=== PATIENT | female | born 1970 | race Caucasian/White ===

== ENCOUNTER → 2016-07-15 | Outpatient (CLI) | payer BC | LOC: OPSV 08:26 | DX: M06.4 Inflammatory polyarthropathy (principal); D86.9 Sarcoidosis, unspecified; M70.61 Trochanteric bursitis, right hip; E55.9 Vitamin D deficiency, unspecified | CPT/HCPCS: 96413; 96415; J1745; Q0163 ==

== ENCOUNTER → 2016-08-14 | Outpatient (CLI) | payer BC ==
[~2016-08-14] VITALS: Ht 157.5 cm; Wt 99.8 kg
== END ==
LOC: OPSV 14:22
DX: D86.9 Sarcoidosis, unspecified (principal); M70.61 Trochanteric bursitis, right hip; E55.9 Vitamin D deficiency, unspecified; R94.5 Abnormal results of liver function studies; M06.4 Inflammatory polyarthropathy
CPT/HCPCS: 96413; 96415; J1745; Q0163

== ENCOUNTER → 2016-09-10 | Outpatient (CLI) | payer BC ==
[~2016-09-10] VITALS: Ht 157.5 cm; Wt 99.8 kg
== END ==
LOC: OPSV 08:00
DX: R94.5 Abnormal results of liver function studies (principal); I10 Essential (primary) hypertension; M70.61 Trochanteric bursitis, right hip; D86.9 Sarcoidosis, unspecified; M06.4 Inflammatory polyarthropathy; E55.9 Vitamin D deficiency, unspecified; Z79.899 Other long term (current) drug therapy
CPT/HCPCS: 96413; 96415; J1745; Q0163

== ENCOUNTER → 2016-10-09 | Outpatient (CLI) | payer BC ==
[~2016-10-09] VITALS: Ht 157.5 cm; Wt 99.8 kg
== END ==
LOC: OPSV 10-08 08:00
DX: M70.61 Trochanteric bursitis, right hip (principal); I10 Essential (primary) hypertension; M06.4 Inflammatory polyarthropathy; R21 Rash and other nonspecific skin eruption; M83.9 Adult osteomalacia, unspecified; Z79.899 Other long term (current) drug therapy; E55.9 Vitamin D deficiency, unspecified; D86.9 Sarcoidosis, unspecified
CPT/HCPCS: 96413; 96415; J1745; Q0163

== ENCOUNTER → 2016-11-06 | Outpatient (CLI) | payer BC ==
[~2016-11-06] VITALS: Ht 157.5 cm; Wt 99.8 kg
== END ==
LOC: OPSV 08:23
DX: D86.9 Sarcoidosis, unspecified (principal); M70.61 Trochanteric bursitis, right hip; E55.9 Vitamin D deficiency, unspecified; Z79.899 Other long term (current) drug therapy; R94.5 Abnormal results of liver function studies; M06.4 Inflammatory polyarthropathy
CPT/HCPCS: 96413; 96415; J1745; Q0163

== ENCOUNTER → 2017-01-29 | Outpatient (CLI) | payer BC ==
[~2017-01-29] VITALS: Ht 157.5 cm; Wt 104.3 kg
== END ==
LOC: OPSV 13:00
DX: M70.61 Trochanteric bursitis, right hip (principal); R94.5 Abnormal results of liver function studies; I10 Essential (primary) hypertension; M06.4 Inflammatory polyarthropathy; R21 Rash and other nonspecific skin eruption; M83.9 Adult osteomalacia, unspecified; Z79.899 Other long term (current) drug therapy; D86.9 Sarcoidosis, unspecified; E55.9 Vitamin D deficiency, unspecified
CPT/HCPCS: 96413; 96415; J1745; J7030; Q0163

== ENCOUNTER → 2020-05-26 | Outpatient (CLI) | payer BC ==
[~2020-05-26] VITALS: Ht 157.5 cm; Wt 104.3 kg
[~2020-05-26] MED LIST: AZATHIOPRINE50 MG PO; CATAPRES 0.1MG0.1 MG PO; COZAAR100 MG PO; LIORESAL TAB 1010 MG PO; NORCO 5-325 TA1 EACH PO; OMEPRAZOLE20 MG PO; PREMARIN0.625 MG PO; PROZAC40 MG PO; TORADOL 10 MG T10 MG PO; VICODIN 5-3001 EACH PO; VITAMIN D250000 UNIT PO
== END ==
LOC: OPSV 08:00
DX: D86.9 Sarcoidosis, unspecified (principal)
CPT/HCPCS: 96365; 96366; 96413; 96415; J1745; J7030

== ENCOUNTER 2022-01-06 10:46 | Emergency (ER) | payer BC ==
[2022-01-06 11:28] LABS: HEMOGLOBIN 13.5 gm/dl (12.3-15.3); RED BLOOD COUNT 4.38 M/UL (4.00-5.10)
[2022-01-06 11:52] LABS: BUN/CREATININE RATIO 22 (0-10)
[2022-01-06] MEDS ORDERED: VOLTAREN ARTHRI20 GM TP (12:16)
== END 2022-01-06 12:45 | disposition home or self-care (01) ==
LOC: ER1 10:46
PROVIDERS: Physician Assistant Medical
DX: S93.401A Sprain of unspecified ligament of right ankle, initial encounter (principal); I10 Essential (primary) hypertension; X58.XXXA Exposure to other specified factors, initial encounter
CPT/HCPCS: 73610; 80053; 84550; 85025; 99283

== ENCOUNTER → 2022-02-12 | Outpatient (CLI) | payer BC ==
[~2022-02-12] MED LIST changes: +VOLTAREN ARTHRI20 GM TP
== END ==
LOC: KOH-I 11:32
DX: S82.51XA Displaced fracture of medial malleolus of right tibia, initial encounter for closed fracture (principal); M19.071 Primary osteoarthritis, right ankle and foot
CPT/HCPCS: 73610